=== PATIENT | male | born 1980 | race African-American/Black ===

== ENCOUNTER 2022-02-07 22:00 | Emergency (ER) | payer OTHER ==
[2022-02-07 22:04] VITALS: BP 123/64; PULSE 60; RESP 18; TEMP 98; BMI 27.9
[2022-02-07] MEDS ORDERED: ACETAMINOPHEN 500 MG TABLET (FP) PO ONE (22:43)
[2022-02-07] MEDS ORDERED: IBUPROFEN 600 MG TABLET (FP) PO ONE ×2 (22:46→22:50)
[2022-02-07] MEDS ORDERED: ACETAMINOPHEN 325 MG TABLET (FP) ONE (22:51)
== END 2022-02-08 01:10 | disposition home or self-care (01) ==
LOC: JER 22:00
DX: R07.0 Pain in throat (principal); M79.10 Myalgia, unspecified site
CPT/HCPCS: 0241U-QW; 87070; 87651; 99283-25